=== PATIENT | female | born 1955 | race Two or more races ===

== ENCOUNTER 2018-07-20 00:31 | Emergency (ER) | payer MEDICAID, OTHER ==
[~2018-07-20] VITALS: Ht 172.7 cm; Wt 82.6 kg
[2018-07-20 00:57] VITALS: BP 101/68
[2018-07-20] MEDS ORDERED: Norco 5mg/325mg tab ORAL ONE (01:15)
[2018-07-20] MEDS ORDERED: TRAMADOL HCL50 MG ORAL (01:20)
[2018-07-20] MEDS ORDERED: AMOXICILLIN500 MG ORAL (01:20)
[2018-07-20] MEDS ORDERED: PSEUDOEPHEDRINE60 MG PO (01:20)
--- NOTE | 2018-07-20 01:21 | Emergency Room Report ---
History of Present Illness General Chief Complaint: Earache Source: Patient Present Illness HPI Is a 62-year-old female with history of migraine. She presents with chief Right ear pain. Onset about a week but worse the last 2 days. Antibiotic drop not helping. Motrin not helping. No fever chills but does have ingestion. Denies any other complaint. Pain is 9 out of 10. Nothing made it better. Nothing made it worse. Allergies: Coded Allergies: NO KNOWN DRUG ALLERGIES (Unverified Allergy, Unknown, 03/09/15) Patient History Past Medical History: see triage record, old chart reviewed Past Surgical History: none Pertinent Family History: none Social History: Denies: smoking Last Menstrual Period: 2007 Now: No : 2 Para: 2 Immunizations: other Reviewed Nursing Documentation: PMH: Agreed; PSxH: Agreed Nursing Documentation-PMH Past Medical History: No History, Except For Hx Hypertension: No - hypotension Review of Systems Eye: Denies: eye pain, blurred vision ENT: Reports: ear pain; Denies: nose congestion, throat swelling Respiratory: Denies: cough, shortness of breath Cardiovascular: Denies: chest pain, palpitations Gastrointestinal: Denies: abdominal pain, diarrhea, nausea, vomiting Musculoskeletal: Denies: back pain, joint pain Skin: Denies: rash Neurological: Denies: headache, numbness Endocrine: Denies: increased thirst, increased urine Hematologic/Lymphatic: Denies: easy bruising All Other Systems: negative except mentioned in HPI Physical Exam Vital Signs Date Time Temp Pulse Resp B/P (MAP) Pulse Ox O2 Delivery O2 Flow Rate FiO2 07/20/18 00:40 97.3 64 16 101/68 94 Room Air 97.3 vitals normal Sp02 EP Interpretation: reviewed, normal General Appearance: well appearing, no apparent distress, alert Head: normocephalic, atraumatic Eyes: bilateral eye PERRL, bilateral eye EOMI ENT: hearing grossly normal, normal pharynx, other - right TM with fluids Neck: full range of motion, supple, no meningismus Respiratory: chest non-tender, lungs clear, normal breath sounds Cardiovascular #1: regular rate, rhythm, no murmur Gastrointestinal: normal bowel sounds, non tender, no mass, no organomegaly, no bruit, non-distended Musculoskeletal: back normal, gait/station normal, normal range of motion Psychiatric: mood/affect normal Skin: warm/dry Medical Decision Making Diagnostic Impression: Primary Impression: Acute otitis media with effusion of right ear ER Course Patient presents with otitis media. No perforation. No mastoiditis or meningitis. We'll discharge home. Last Vital Signs Date Time Temp Pulse Resp B/P (MAP) Pulse Ox O2 Delivery O2 Flow Rate FiO2 07/20/18 00:57 97.3 64 16 101/68 94 Room Air 97.3 Status: improved Disposition: HOME, SELF-CARE Condition: Stable Scripts Tramadol Hcl* (ULTRAM*) 50 Mg Tablet 50 MG ORAL Q6H PRN for For Pain, #10 TAB 0 Refills Prov: Fred Mcduffie MD 07/20/18 Pseudoephedrine Hcl* (SUDAFED*) 60 Mg Tablet 60 MG PO Q6H, #20 TAB Prov: Fred Mcduffie MD 07/20/18 Amoxicillin* (AMOXIL*) 500 Mg Capsule 500 MG ORAL THREE TIMES A DAY, #21 CAP Prov: Fred Mcduffie MD 07/20/18 Referrals: [employer],REFERRIN (PCP) Patient Instructions: Otitis Media, Adult, [id number] Additional Instructions: Follow-up with your doctor in 7 days. Return if symptom worsen. Fred Mcduffie MD Jul 20, 2018 01:20
[2018-07-20 01:27] VITALS: BP 101/68
== END 2018-07-20 01:29 | disposition home or self-care (01) ==
LOC: EMR 01:14
DX: H66.91 Otitis media, unspecified, right ear (principal)
CPT/HCPCS: 99283

== ENCOUNTER 2018-08-05 08:04 | Emergency (ER) | payer MEDICAID ==
[~2018-08-05] VITALS: Ht 172.7 cm; Wt 84.4 kg
[~2018-08-05 08:04] MED LIST: AMOXICILLIN500 MG ORAL; PSEUDOEPHEDRINE60 MG PO; TRAMADOL HCL50 MG ORAL
[2018-08-05 08:18] VITALS: BP 103/66
--- NOTE | 2018-08-05 08:38 | Emergency Room Report ---
History of Present Illness General Chief Complaint: Skin Rash/Abscess Source: Patient Present Illness HPI Patient noticed a rash on her neck this morning. She's had some pain in that area for 2 days. She denies fevers. She had a shingles vaccination in the past. The rash is painful - 3/10, burning pain, not radiating. She saw her ENT MD a few days ago. Her father had shingles last year and was hospitalized. No major medical problems. No NVD, cough. Denies diabetes. Unknown tetanus. Allergies: Coded Allergies: No Known Allergies (Unverified , 08/05/18) Patient History Past Medical History: see triage record Social History: Denies: smoking Social History Narrative Last Menstrual Period: NA Now: No Nursing Documentation-PMH Past Medical History: No History, Except For Hx Hypertension: No - hypotension Review of Systems All Other Systems: negative except mentioned in HPI Physical Exam Vital Signs Date Time Temp Pulse Resp B/P (MAP) Pulse Ox O2 Delivery O2 Flow Rate FiO2 08/05/18 08:11 98.4 72 16 103/66 97 Room Air Sp02 EP Interpretation: reviewed, normal General Appearance: well appearing, no apparent distress, GCS 15 Head: normocephalic Eyes: bilateral eye normal inspection, bilateral eye PERRL ENT: hearing grossly normal, normal voice Neck: full range of motion, supple, other - rash Respiratory: lungs clear, no respiratory distress, speaking full sentences Cardiovascular #1: regular rate, rhythm Cardiovascular #2: 2+ radial (R) Gastrointestinal: normal inspection Musculoskeletal: gait/station normal, normal range of motion Neurologic: alert, oriented x3, normal gait, grossly normal Psychiatric: mood/affect normal Skin: other - erythematous vesicular rash in C4 or C5 dermatome R Medical Decision Making Diagnostic Impression: Primary Impression: Shingles Qualified Codes: B02.9 - Zoster without complications ER Course Patient presents with rash in a dermatome with pain. This appears to be shingles. Valacyclovir indicated as well as analgesics. Patient will check with MD when last tetanus was. Many questions answered regarding infectivity. Patient stable for outpatient observation and treatment. Last Vital Signs Date Time Temp Pulse Resp B/P (MAP) Pulse Ox O2 Delivery O2 Flow Rate FiO2 08/05/18 09:27 98.4 75 16 103/66 97 Room Air Status: unchanged Disposition: HOME, SELF-CARE Condition: Stable Scripts Ibuprofen* (MOTRIN*) 600 Mg Tablet 600 MG ORAL Q6H PRN for For Pain, #20 TAB Prov: Graeme Clark MD 08/05/18 Tramadol Hcl* (ULTRAM*) 50 Mg Tablet 50 MG ORAL Q6H PRN for For Pain, #12 TAB 0 Refills Prov: Graeme Clark MD 08/05/18 Capsaicin (Zostrix Hp) 56.6 Gm Cream..g. 1 APPLIC TP DAILY PRN for For Pain, #56.6 GM Prov: Graeme Clark MD 08/05/18 Valacyclovir Hcl* (VALTREX*) 500 Mg Tablet 1000 MG ORAL TID, #21 TAB Prov: Graeme Clark MD 08/05/18 Referrals: [facility],REFERR[facility] (PCP) Graeme Clark MD Aug 05, 2018 08:38
[2018-08-05] MEDS ORDERED: Bacitracin Oint UD TOPIC ONE ×2 (08:43→08:45)
[2018-08-05] MEDS ORDERED: TRAMADOL HCL50 MG ORAL (08:45)
[2018-08-05] MEDS ORDERED: ZOSTRIX HP56.6 G2 TP (08:45)
[2018-08-05] MEDS ORDERED: IBUPROFEN600 MG ORAL (08:45)
[2018-08-05] MEDS ORDERED: VALACYCLOVIR500 MG ORAL (08:45)
[2018-08-05 09:27] VITALS: BP 103/66
== END 2018-08-05 09:00 | disposition home or self-care (01) ==
LOC: EMR 08:31
DX: B02.9 Zoster without complications (principal)
CPT/HCPCS: 99283

== ENCOUNTER 2019-07-09 15:13 | Emergency (ER) | payer MEDICAID ==
[~2019-07-09] VITALS: Ht 175.3 cm; Wt 82.6 kg
[~2019-07-09 15:13] MED LIST changes: +IBUPROFEN600 MG ORAL; +VALACYCLOVIR500 MG ORAL; +ZOSTRIX HP56.6 G2 TP
[2019-07-09 15:35] VITALS: BP 109/67
--- NOTE | 2019-07-09 15:48 | Emergency Room Report ---
History of Present Illness General Chief Complaint: Animal Bite Source: Patient Present Illness HPI 63-year-old female with history of osteoporosis which she later tells me after prescription of prednisone here complaining of 3 days of pruritic rash all over her upper and lower extremities after being bit by mosquitoes. Patient reports that she tried to pop 1 of the bites on her right wrist which started getting more swollen today and painful. Denies fever and chills, anaphylaxis, chest pain, shortness of breath, palpitation, no other associated symptoms. Has not use any medication for symptom relief. Allergies: Coded Allergies: No Known Allergies (Unverified , 08/05/18) Patient History Past Medical History: see triage record Past Surgical History: unable to obtain Pertinent Family History: none Now: No Immunizations: UTD Reviewed Nursing Documentation: PMH: Agreed; PSxH: Agreed Nursing Documentation-PMH Past Medical History: No History, Except For Hx Hypertension: No - hypotension Review of Systems All Other Systems: negative except mentioned in HPI Physical Exam Vital Signs Date Time Temp Pulse Resp B/P (MAP) Pulse Ox O2 Delivery O2 Flow Rate FiO2 07/09/19 15:35 99.1 65 16 109/67 (81) 100 Room Air Sp02 EP Interpretation: reviewed, normal General Appearance: no apparent distress, alert, GCS 15, non-toxic Head: normocephalic, atraumatic Eyes: bilateral eye normal inspection, bilateral eye PERRL ENT: hearing grossly normal, normal pharynx, no angioedema, normal voice Neck: full range of motion, supple, supple/symm/no masses Respiratory: chest non-tender, lungs clear, normal breath sounds, no rhonchi, no wheezing, speaking full sentences Cardiovascular #1: regular rate, rhythm, no edema, no murmur, normal capillary refill Cardiovascular #2: 2+ radial (R), 2+ radial (L) Gastrointestinal: normal bowel sounds, non tender, soft, non-distended, no guarding, no rebound Genitourinary: normal inspection, no CVA tenderness Musculoskeletal: back normal, digits/nails normal, gait/station normal, non- tender Neurologic: alert, oriented x3, responsive, motor strength/tone normal, sensory intact, speech normal Psychiatric: judgement/insight normal, memory normal, mood/affect normal, no suicidal/homicidal ideation Skin: rash - cellultis right wrist, non infected bites lower and upper extremities Lymphatic: no adenopathy Medical Decision Making PA Attestation All my diagnosis and treatment plans were reviewed ad discussed with my supervising physician Dr. Fragoso Diagnostic Impression: Primary Impression: Cellulitis of right wrist Additional Impression: Insect bite ER Course 63-year-old female with history of osteoporosis which she later tells me after prescription of prednisone here complaining of 3 days of pruritic rash all over her upper and lower extremities after being bit by mosquitoes. Patient reports that she tried to pop 1 of the bites on her right wrist which started getting more swollen today and painful. Denies fever and chills, anaphylaxis, chest pain, shortness of breath, palpitation, no other associated symptoms. Has not use any medication for symptom relief. Ddx considered but are not limited to : Cellulitis, infected insect bite, noninfected insect bite superficial infection, abscess Vital signs: are WNL, pt. is afebrile H&PE are most consistent with: Cellulitis of the right wrist, noninfected insect bite ORDERS: Augmentin, hydrocortisone cream ED INTERVENTIONS: None required at this time. DISCHARGE: At this time pt. is stable for d/c to home. Will provide printed patient care instructions, and any necessary prescriptions. Care plan and follow up instructions have been discussed with the patient prior to discharge. I advised the patient to follow-up with primary care provider also avoid popping the bites to prevent further infection if worsening symptoms return to the emergency room Last Vital Signs Date Time Temp Pulse Resp B/P (MAP) Pulse Ox O2 Delivery O2 Flow Rate FiO2 07/09/19 15:35 99.1 65 16 109/67 (81) 100 Room Air Disposition: HOME, SELF-CARE Condition: Stable Scripts Hydrocortisone/Aloe Vera 1%* (HYDROCORTISONE-ALOE 1% CREAM*) Y Cr 1 APPLIC TOPIC Q6H PRN for Itching, #30 GM Prov: Sameera Braswell 07/09/19 Amoxicillin/Potassium Clav 875-125* (AUGMENTIN 875-125 TABLET*) 1 Each Tablet 1 TAB ORAL TWICE A DAY for 7 Days, #14 TAB Prov: Sameera Braswell 07/09/19 Prednisone* (PREDNISONE*) 10 Mg Tablet 10 MG ORAL BID for 5 Days, #10 TAB 0 Refills Prov: Sameera Braswell 07/09/19 Referrals: [facility]ERR[facility] (PCP) Patient Instructions: Cellulitis, [id number], Insect Bite, [id number] Additional Instructions: Take medication as directed follow-up with your primary care provider if worsening symptoms return to the emergency room Sameera Braswell Jul 09, 2019 15:48
[2019-07-09] MEDS ORDERED: AUGMENTIN 875-1 EAC1 ORAL (15:49)
[2019-07-09] MEDS ORDERED: PREDNISONE10 MG ORAL (15:49)
[2019-07-09] MEDS ORDERED: HYDROCORTISONE-30 GM TOPIC (15:49)
[2019-07-09 16:02] VITALS: BP 109/67
--- NOTE | 2019-07-09 16:03 | NUR ---
ED Nurse Note: Patient is clearedf or discharge, verbalized understanding of discharge instructions. Id band removed. Patient departed with all belongings accompanied by her .
== END 2019-07-09 16:02 | disposition home or self-care (01) ==
LOC: EMR 15:31
DX: L03.113 Cellulitis of right upper limb (principal); S40.862A Insect bite (nonvenomous) of left upper arm, initial encounter; S40.861A Insect bite (nonvenomous) of right upper arm, initial encounter; S80.862A Insect bite (nonvenomous), left lower leg, initial encounter; S80.861A Insect bite (nonvenomous), right lower leg, initial encounter; W57.XXXA Bitten or stung by nonvenomous insect and other nonvenomous arthropods, initial encounter; Y92.9 Unspecified place or not applicable
CPT/HCPCS: 99282

== ENCOUNTER 2019-11-14 19:36 | Emergency (ER) | payer MEDICAID ==
[~2019-11-14] VITALS: Ht 175.3 cm; Wt 83.9 kg
[~2019-11-14 19:36] MED LIST changes: +AUGMENTIN 875-1 EAC1 ORAL; +HYDROCORTISONE-30 GM TOPIC; +PREDNISONE10 MG ORAL
--- NOTE | 2019-11-14 19:58 | NUR ---
ED Nurse Note: Pt ambulated to ED from home. c/o pain and swelling on L ankle after twisting it on tuesday. Pt reports swelling and decreased mobility and pain with walking since tuesday. Large fluid filled blister noted on outside of ankle where pt states she put ice directly on it. VSS, XRAY at bedside
--- NOTE | 2019-11-14 20:39 | Emergency Room Report ---
History of Present Illness General Chief Complaint: Lower Extremity Injury Source: Patient Present Illness HPI 64-year-old female with no significant past medical history here complaining of twisting left ankle x1 week. Reports that has been taking ibuprofen 800 with minimal relief. 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 Obvious swelling noted in ankle and foot. Patient has good distal pulses. Denies tingling numbness. Rating pain 10 out of 10 without radiation. No calf tenderness noted. Also patient applied ice directly to the affected area and now has a burn. No pus drainage noted. Patient is afebrile. Denies chest pain, shortness of breath, palpitation, headache and dizziness. Patient refuses to get any sort of splint or crutches as it makes her depressed to ambulate. Patient also request a blister to be popped. Allergies: Coded Allergies: No Known Allergies (Unverified , 08/05/18) Patient History Past Medical History: see triage record Past Surgical History: none Pertinent Family History: none Now: No Immunizations: UTD Reviewed Nursing Documentation: PMH: Agreed; PSxH: Agreed Nursing Documentation-PMH Past Medical History: No Stated History Hx Hypertension: No - hypotension Review of Systems All Other Systems: negative except mentioned in HPI Physical Exam Vital Signs Date Time Temp Pulse Resp B/P (MAP) Pulse Ox O2 Delivery O2 Flow Rate FiO2 11/14/19 19:40 98.4 71 19 107/64 (78) 95 Sp02 EP Interpretation: reviewed, normal General Appearance: no apparent distress, alert, GCS 15, non-toxic Head: normocephalic, atraumatic Eyes: bilateral eye normal inspection, bilateral eye PERRL ENT: hearing grossly normal, normal pharynx, no angioedema, normal voice Neck: full range of motion, supple/symm/no masses Respiratory: chest non-tender, lungs clear, normal breath sounds, no rhonchi, no wheezing, speaking full sentences Cardiovascular #1: regular rate, rhythm, no edema, no murmur, normal capillary refill Gastrointestinal: non tender, soft Rectal: deferred Genitourinary: no CVA tenderness Musculoskeletal: back normal, no calf tenderness, pelvis stable, gait/station normal, Chaim's Sign negative, non-tender, swelling - Left foot and ankle with obvious blistering left lateral ankle Neurologic: alert, motor strength/tone normal, oriented x3, sensory intact, responsive, speech normal Psychiatric: judgement/insight normal, memory normal, mood/affect normal, no suicidal/homicidal ideation Skin: no rash, other - First-degree burn noted left ankle in the lateral side Lymphatic: no adenopathy Procedures Splinting Splinting : Consent: Verbal Location: Left ankle Pre-Made Type: DERICK wrap Pre-Proc Neuro Vasc Exam: normal Post-Proc Neuro Vasc Exam: normal Patient Tolerated: Well Complications: None Additional Procedure Procedure Narrative Silver Silvadene was applied to the burn area and nonadhesive dressing was applied Medical Decision Making PA Attestation Diagnosis and treatment plans were reviewed and discussed with my supervising physician Dr. Donohue Diagnostic Impression: Primary Impression: Left ankle sprain Additional Impression: Burn of ankle ER Course 64-year-old female with no significant past medical history here complaining of twisting left ankle x1 week. Reports that has been taking ibuprofen 800 with minimal relief. 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 Obvious swelling noted in ankle and foot. Patient has good distal pulses. Denies tingling numbness. Rating pain 10 out of 10 without radiation. No calf tenderness noted. Also patient applied ice directly to the affected area and now has a burn. No pus drainage noted. Patient is afebrile. Denies chest pain, shortness of breath, palpitation, headache and dizziness. Patient refuses to get any sort of splint or crutches as it makes her depressed to ambulate. Patient also request a blister to be popped. Ddx considered but are not limited to: ankle sprain, ankle strain, ankle fracture, ankle contusion Vital signs: are WNL, pt. is afebrile H&PE are most consistent with: Left ankle sprain, burn of left ankle ORDERS: ankle x-ray, ibuprofen, mupirocin cream ED INTERVENTIONS: Derick wrap was applied, postoperative shoe was given as patient was wearing very tight shoes in order to prevent further swelling I offered postoperative shoe as patient refuses to get any Derick wrap or any crutches. Patient to follow-up with education specialist. Also suggested he was applied and nonadhesive dressing was applied. DISCHARGE: At this time pt. is stable for d/c to home. Will provide printed patient care instructions, and any necessary prescriptions. Care plan and follow up instructions have been discussed with the patient prior to discharge. Patient to follow-up with education specialist, take medication as directed, keep area elevated, patient refused to get any splinting despite my recommendation as patient has osteoporosis and make it fractured easily to sprained ankle and lack of mobility. If worsening symptoms return to the emergency room Other X-Ray Diagnostic Results Other X-Ray Diagnostic Results : X-Ray ordered: Left ankle x-ray # of Views/Limited Vs Complete: 3 View Indication: Pain EP Interpretation: Yes PA Xray: Interpretation reviewed, by supervising MD, and agrees with findings. Interpretation: no dislocation, no fractures Impression: No acute disease Electronically Signed by: Sameera Dillon PA-C Last Vital Signs Date Time Temp Pulse Resp B/P (MAP) Pulse Ox O2 Delivery O2 Flow Rate FiO2 11/14/19 19:40 98.4 71 19 107/64 (78) 95 Disposition: HOME, SELF-CARE Condition: Stable Scripts Mupirocin (MUPIROCIN) 15 Gm Cream..g. 1 APPLIC TOPIC THREE TIMES A DAY, #15 GM Prov: Sameera Brasewll 11/14/19 Ibuprofen (Ibu) 800 Mg Tablet 800 MG PO TID, #21 TAB Prov: Sameera Braswell 11/14/19 Referrals: [facility] (PCP) Patient Instructions: Ankle Sprain Additional Instructions: Take medication as directed, follow with primary care provider, elevate affected area, you refused to get a splint immobilizer or crutches. However due to your osteoporosis you are at risk of fractures. If worsening symptoms return to the emergency room Sameera Braswell Nov 14, 2019 20:39
[2019-11-14] MEDS ORDERED: MUPIROCIN15 GM TOPIC (20:42)
[2019-11-14] MEDS ORDERED: IBU800 MG PO (20:42)
[2019-11-14 20:45] VITALS: BP 107/64
--- NOTE | 2019-11-14 20:45 | NUR ---
ER DISCHARGE NOTE: Patient is cleared to be discharged per ERMD, pt is aox4, on room air, with stable vital signs. pt was given dc and prescription instructions, pt was able to verbalize understanding, pt id band removed. pt is able to ambulate with steady gait. pt took all belongings.
--- NOTE | 2019-11-15 13:44 | Diagnostic Imaging Report ---
Indication: left ankle pain Comparison: None Findings: 3 views of the left ankle obtained. There is a horizontally oriented transverse nondisplaced fracture of the lateral malleolus right at the tip of the bone. Overlying soft tissue swelling is present. As the fracture may be acute. Alignment of the ankle is normal. IMPRESSION: Suspected fracture at the inferior margin of the lateral malleolus, probably acute. Overlying soft tissue swelling noted.
== END 2019-11-14 20:45 | disposition home or self-care (01) ==
LOC: EMR 20:04
DX: S93.402A Sprain of unspecified ligament of left ankle, initial encounter (principal); T25.012A Burn of unspecified degree of left ankle, initial encounter; T31.0 Burns involving less than 10% of body surface; X50.1XXA Overexertion from prolonged static or awkward postures, initial encounter; Y92.9 Unspecified place or not applicable; M81.0 Age-related osteoporosis without current pathological fracture; E21.5 Disorder of parathyroid gland, unspecified
CPT/HCPCS: 73610; Z7502; 99283

== ENCOUNTER 2019-11-18 00:15 | Emergency (ER) | payer MEDICAID ==
[~2019-11-18] VITALS: Ht 172.7 cm; Wt 68.0 kg
[~2019-11-18 00:15] MED LIST changes: +IBU800 MG PO; +MUPIROCIN15 GM TOPIC
--- NOTE | 2019-11-18 00:35 | NUR ---
ED Nurse Note: Patient walked in from home d/t left ankle pain and blister intact with fluid inside. Patient aao x 4 and ambulatory. Patient pain 4/10. No acute distress noted.
--- NOTE | 2019-11-18 00:41 | NUR ---
ED Nurse Note: ERMD at bedside.
--- NOTE | 2019-11-18 00:57 | Emergency Room Report ---
History of Present Illness General Chief Complaint: Lower Extremity Injury Source: Patient Present Illness HPI This a 64-year-old female who presents with complaint of left ankle pain. She twisted her ankle few days ago. She did not apply ice pack directly on it. Because of burn and had blistering. She came in here and had x-ray done. Additionally read of x-ray is negative. She was given antibiotic ointment to put over the blister. She was told that she need to be splinted and crutches but she refused. She said it is still hurting her. She said the blister is causing some pain because of the pressure. No nausea no vomiting. No new injury. Nothing made it better. Walking made it worse. Allergies: Coded Allergies: No Known Allergies (Unverified , 08/05/18) Patient History Past Medical History: see triage record, old chart reviewed Past Surgical History: none Pertinent Family History: none Social History: Denies: smoking Now: No Immunizations: other Reviewed Nursing Documentation: PMH: Agreed; PSxH: Agreed Nursing Documentation-PMH Hx Hypertension: No - hypotension Review of Systems Eye: Denies: eye pain, blurred vision ENT: Denies: ear pain, nose congestion, throat swelling Respiratory: Denies: cough, shortness of breath Cardiovascular: Denies: chest pain, palpitations Gastrointestinal: Denies: abdominal pain, diarrhea, nausea, vomiting Musculoskeletal: Reports: joint pain, joint swelling; Denies: back pain Skin: Denies: rash Neurological: Denies: headache, numbness Endocrine: Denies: increased thirst, increased urine Hematologic/Lymphatic: Denies: easy bruising All Other Systems: negative except mentioned in HPI Physical Exam Vital Signs Date Time Temp Pulse Resp B/P (MAP) Pulse Ox O2 Delivery O2 Flow Rate FiO2 11/18/19 00:29 98.1 72 16 102/61 (75) 98 Room Air Vitals normal Sp02 EP Interpretation: reviewed, normal General Appearance: well appearing, no apparent distress, alert Head: normocephalic, atraumatic Eyes: bilateral eye PERRL, bilateral eye EOMI ENT: hearing grossly normal, normal pharynx Neck: full range of motion, supple, no meningismus Respiratory: chest non-tender, lungs clear, normal breath sounds Cardiovascular #1: regular rate, rhythm, no murmur Gastrointestinal: normal bowel sounds, non tender, no mass, no organomegaly, no bruit, non-distended Musculoskeletal: back normal, normal range of motion, gait/station normal, other - Left ankle with swelling and ecchymosis distal to the lateral malleolus. Around the lateral aspect of the ankle there is a large blistered. No warmth or redness. No streaking. Pulse normal. Tender to palpation. Psychiatric: mood/affect normal Procedures Splinting Splinting : Consent: Verbal Location: Left ankle Pre-Made Type: aircast Pre-Proc Neuro Vasc Exam: normal Post-Proc Neuro Vasc Exam: normal Patient Tolerated: Well Complications: None Medical Decision Making Diagnostic Impression: Primary Impression: Lateral malleolar fracture Qualified Codes: S82.65XA - Nondisplaced fracture of lateral malleolus of left fibula, initial encounter for closed fracture Additional Impression: Second degree burn injury ER Course Patient with an avulsion fracture of the inferior aspect of the lateral malleolus. There is soft tissue swelling. This is read on the x-ray. I did break the blister for her comfort. No evidence of any infection. I placed her in a splint and put on crutches. Recommend that she follow-up with orthopedic doctor for evaluation. She may need a walking boot or cast. No need for new x- rays. Is been walking on it without any difficulty. Last Vital Signs Date Time Temp Pulse Resp B/P (MAP) Pulse Ox O2 Delivery O2 Flow Rate FiO2 11/18/19 00:29 98.1 72 16 102/61 (75) 98 Room Air Status: improved Disposition: HOME, SELF-CARE Condition: Stable Additional Instructions: Elevate leg. Ice pack to the area. Do not put directly on the skin. Keep your wound clean. Apply antibiotic ointment. Follow-up with your doctor in a week. You may need a referral to see orthopedic doctor. You may need a walking boot or a cast. Return if symptoms worsen. Fred Mcduffie MD Nov 18, 2019 00:57
[2019-11-18 01:02] VITALS: BP 118/75
--- NOTE | 2019-11-18 01:02 | NUR ---
ER DISCHARGE NOTE: Patient is cleared to be discharged per ERMD, pt is aox4, on room air, with stable vital signs. pt was given dc instructions, pt was able to verbalize understanding, pt id band removed. pt is able to ambulate with crutchest, pt given instructions regardnig proper crutch use, verbalized understanding. pt took all belongings. pt stable upon discharge.
== END 2019-11-18 01:02 | disposition home or self-care (01) ==
LOC: EMR 00:28
DX: S82.65XA Nondisplaced fracture of lateral malleolus of left fibula, initial encounter for closed fracture (principal); T25.212A Burn of second degree of left ankle, initial encounter; X08.8XXA Exposure to other specified smoke, fire and flames, initial encounter; Y92.9 Unspecified place or not applicable; Y99.8 Other external cause status
CPT/HCPCS: 99282